=== PATIENT | male | born 1940 | race Two or more races ===

== ENCOUNTER 2023-12-21 17:58 | Emergency (ER) | payer OTHER ==
[~2023-12-21] VITALS: Ht 182.9 cm; Wt 86.9 kg
[2023-12-21 20:56] VITALS: BP 147/93; PULSE 89; RESP 16; TEMP 97.8; O2SAT 96
[2023-12-22] MEDS ORDERED: CEPH500C PO (00:06)
== END 2023-12-21 23:39 | disposition home or self-care (01) ==
LOC: ER 17:58
DX: S41.111A Laceration without foreign body of right upper arm, initial encounter (principal); S00.83XA Contusion of other part of head, initial encounter; I10 Essential (primary) hypertension; J44.9 Chronic obstructive pulmonary disease, unspecified; Z98.890 Other specified postprocedural states; X58.XXXA Exposure to other specified factors, initial encounter; Y93.9 Activity, unspecified; Y92.89 Other specified places as the place of occurrence of the external cause; Y99.8 Other external cause status
CPT/HCPCS: 70450; 72125